=== PATIENT | female | born 2000 | race Two or more races ===

== ENCOUNTER 2022-08-02 22:54 | Emergency (ER) | payer MEDICAID ==
[~2022-08-02] VITALS: Ht 152.4 cm; Wt 52.2 kg
[2022-08-02 23:20] VITALS: BP 117/88
== END 2022-08-03 02:37 | disposition home or self-care (01) ==
LOC: ER 22:54 → EDBD 22:54 → ER 08-03 02:36
DX: S60.511A Abrasion of right hand, initial encounter (principal); S60.512A Abrasion of left hand, initial encounter; Y04.8XXA Assault by other bodily force, initial encounter; Y93.89 Activity, other specified; Y92.89 Other specified places as the place of occurrence of the external cause; Y99.8 Other external cause status
CPT/HCPCS: 73120